=== PATIENT | female | born 1980 | race Caucasian/White ===

== ENCOUNTER → 2017-06-22 | Outpatient (CLI) | payer BC ==
[2006-02-11 16:00] VITALS: TEMP 98.4
[~2017-06-22] MED LIST: PROTONIX 40MG T40 MG PO
== END ==
LOC: COL.RAD 07:49
DX: R10.9 Unspecified abdominal pain (principal); R19.7 Diarrhea, unspecified
CPT/HCPCS: A9537

== ENCOUNTER 2017-06-28 09:08 | Day surgery (SDC) | payer BC ==
[~2017-06-28] VITALS: Ht 162.6 cm; Wt 58.8 kg
[2017-06-28] MEDS ORDERED: ALDACTONE50 MG PO (09:19)
[2017-06-28] MEDS ORDERED: QVAR0.04 MG/AC IH (09:20)
[2017-06-28 09:37] VITALS: BP 113/78; PULSE 86; TEMP 98.5
[2017-06-28 11:25] VITALS: BP 87/71; PULSE 78; TEMP 98.4
[2017-06-28] MEDS ORDERED: LEVBID0.375 MG PO (11:39)
[2017-06-28 11:40] VITALS: BP 102/83; PULSE 72
[2017-06-28 11:55] VITALS: BP 97/63; PULSE 58
[2017-06-28 12:15] VITALS: BP 89/58; PULSE 66
== END 2017-06-28 12:16 | disposition home or self-care (01) ==
LOC: SDCO 09:08
DX: K64.0 First degree hemorrhoids (principal)
CPT/HCPCS: OP; J2250; J2405; J3010; J7030

== ENCOUNTER 2021-01-12 16:37 | Emergency (ER) | payer BC ==
[~2021-01-12] VITALS: Ht 162.6 cm; Wt 62.3 kg
[~2021-01-12 16:37] MED LIST changes: +ALDACTONE50 MG PO; +LEVBID0.375 MG PO; +QVAR0.04 MG/AC IH
[2021-01-12] MEDS ORDERED: CEPHALEXIN500 M1 PO (17:57)
[2021-01-12] MEDS ORDERED: NORCO 325 MG-51 TAB PO (17:57)
[2021-01-12] MEDS ORDERED: DIFLUCAN200 MG PO (18:00)
[2021-01-12 18:06] VITALS: BP 121/89; PULSE 87
== END 2021-01-12 18:06 | disposition home or self-care (01) ==
LOC: COL.ER 16:37
DX: S61.310A Laceration without foreign body of right index finger with damage to nail, initial encounter (principal); W26.0XXA Contact with knife, initial encounter